=== PATIENT | female | born 1950 | race Caucasian/White ===

== ENCOUNTER 2021-11-07 14:38 | Emergency (ER) | payer OTHER ==
[~2021-11-07] VITALS: Ht 154.9 cm; Wt 62.0 kg
[2021-11-07] MEDS ORDERED: CRESTOR5 MG PO (16:23)
[2021-11-07] MEDS ORDERED: AMOXICILLIN500 M2 PO (16:23)
[2021-11-07] MEDS ORDERED: RIZATRIPTAN BENZ5 MG PO (16:24)
[2021-11-07] MEDS ORDERED: PRILOSEC OTC20 MG PO (16:24)
[2021-11-07] MEDS ORDERED: WELLBUTRIN100 M2 PO (16:25)
[2021-11-07] MEDS ORDERED: LEXAPRO5 MG PO (16:27)
[2021-11-07 17:15] LABS: HEMATOCRIT 41.5 % (37.0-47.0); HEMOGLOBIN 13.4 g/dl (12.0-16.0); IMMATURE GRANULOCYTES 0.1 % (0.0-5.0); MEAN CELL VOLUME 92.4 fL CALC (80.0-100.0); MEAN CORPUSCULAR HGB 29.8 pG CALC (26.0-32.0); MEAN CORPUSCULAR HGB CONC 32.3 g/dL CAL (32.0-36.0); NEUT# 5.16 thou/uL (2.00-7.15); RED BLOOD COUNT 4.49 mill/uL (4.20-5.60); RED CELL DISTRI WIDTH 12.9 % (11.5-15.5)
[2021-11-07 17:17] LABS: URINE BILIRUBIN - DIPSTICK NEGATIVE (NEGATIVE); URINE BLOOD DIPSTICK NEGATIVE (NEGATIVE); URINE COLOR YELLOW; URINE GLUCOSE - DIPSTICK NEGATIVE (NEGATIVE); URINE KETONE NEGATIVE (NEGATIVE); URINE LEUK ESTERASE NEGATIVE (NEGATIVE); URINE PROTEIN - DIPSTICK NEGATIVE (NEG-TRACE); URINE UROBILINOGEN - DIPSTICK 0.2 E.U./dL (0.2)
[2021-11-07 17:21] LABS: URINE NITRITE - DIPSTICK NEGATIVE (Negative)
[2021-11-07 17:28] LABS: ALBUMIN 4.6 g/dL (3.2-5.0); ALKALINE PHOSPHATASE 62 u/l (38-126); ANION GAP 13 (6-22 (CALC)); BILIRUBIN, TOTAL 0.3 mg/dL (0.0-1.4); BUN 23 mg/dL (8-23); BUN/CREATININE RATIO 25 (12-20 (CALC)); CARBON DIOXIDE 31 mmol/l (22-30); CHLORIDE 102 mmol/l (95-108); CREATININE 0.9 mg/dL (0.5-1.0); GFR > 60 ML/MIN (>=60 (CALC)); GFR FOR AFR.AMER. > 60 ML/MIN (>=60 (CALC)); POTASSIUM 4.8 mmol/l (3.5-5.1); SGOT/AST 36 u/l (9-36); SODIUM 141 mmol/l (137-146); TOTAL PROTEIN 7.8 g/dL (6.3-8.2)
[2021-11-07 17:57] LABS: TSH, 3RD GENERATION 3.46 uIU/mL (0.47 - 4.68)
[2021-11-07] MEDS ORDERED: ANTIVERT25 M1 PO (18:45)
[2021-11-07] MEDS ORDERED: VISTARIL25 MG PO (18:45)
[2021-11-07 18:49] VITALS: BP 170/84
== END 2021-11-07 19:01 | disposition home or self-care (01) | DRG 880 ==
LOC: ED 14:38
PROVIDERS: Emergency Medicine
DX: F41.9 Anxiety disorder, unspecified (principal); R42 Dizziness and giddiness; E78.5 Hyperlipidemia, unspecified; F32.A Depression, unspecified; Z73.3 Stress, not elsewhere classified; Z63.8 Other specified problems related to primary support group